=== PATIENT | female | born 1995 | race Caucasian/White ===

== ENCOUNTER 2019-02-23 21:34 | Emergency (ER) | payer BC ==
[~2019-02-23] VITALS: Ht 157.5 cm; Wt 95.3 kg
[2019-02-23] MEDS ORDERED: BACITRACIN ZINC 0.9GM TP ONE ×2 (22:10→22:30)
[2019-02-23] MEDS ORDERED: AUGMENTIN 875-1 EACH PO (22:27)
== END 2019-02-24 00:30 | disposition home or self-care (01) ==
LOC: ER 21:34
DX: S51.852A Open bite of left forearm, initial encounter (principal); W54.0XXA Bitten by dog, initial encounter; Y93.89 Activity, other specified
CPT/HCPCS: 99282